=== PATIENT | female | born 1985 | race American Indian/Alaskan Native ===

== ENCOUNTER 2018-08-22 16:22 | Emergency (ER) | payer MEDICAID ==
[2018-08-22 16:24] VITALS: BMI 32.8
[2018-08-22 16:34] VITALS: RESP 18; O2SAT 98
--- NOTE | 2018-08-22 17:55 | C.PDOC ---
History Of Present Illness 33 year old female presents to the emergency department with complaints of rectal pain on and off for the past three months. Patient denies bleeding, trauma, abdominal pain, diarrhea, and vomiting. Time Seen by Provider: 08/22/18 16:38 Chief Complaint (Nursing): GI Problem History Per: Patient History/Exam Limitations: no limitations Onset/Duration Of Symptoms: Intermittent Episodes, Other (three months) Current Symptoms Are (Timing): Still Present Past Medical History Reviewed: Historical Data, Nursing Documentation, Vital Signs Vital Signs: Last Vital Signs Temp 98.9 F 08/22/18 16:33 Pulse 74 08/22/18 16:33 Resp 18 08/22/18 16:33 BP 122/80 08/22/18 16:33 Pulse Ox 98 08/22/18 16:33 - Medical History PMH: Asthma Surgical History: No Surg Hx Family History: States: No Known Family Hx - Social History Hx Tobacco Use: No Hx Alcohol Use: Yes Hx Substance Use: No - Immunization History Hx Tetanus Toxoid Vaccination: No Hx Influenza Vaccination: No Hx Pneumococcal Vaccination: No Review Of Systems Except As Marked, All Systems Reviewed And Found Negative. Gastrointestinal: Positive for: Rectal Pain. Negative for: Vomiting, Abdominal Pain, Diarrhea, Hematochezia Physical Exam - Physical Exam Appears: Well, Non-toxic, No Acute Distress Skin: Normal Color, Warm Head: Atraumatic, Normacephalic Eye(s): bilateral: Normal Inspection, PERRL, EOMI Oral Mucosa: Moist Neck: Normal ROM, Supple Chest: Symmetrical, No Tenderness Cardiovascular: Rhythm Regular, No Friction Rub, No Murmur Respiratory: Normal Breath Sounds, No Rales, No Rhonchi, No Wheezing Gastrointestinal/Abdominal: Soft, No Tenderness, No Guarding, No Rebound, No Hernia Rectal: Heme Negative, Hemorrhoids (positive external hemorrhoid present at 6 o'clock bleeding), No Mass, Other (Health Director Naheed Russell RN) Extremity: Normal ROM, No Swelling Neurological/Psych: Oriented x3, Normal Speech, Normal Cognition Gait: Steady ED Course And Treatment O2 Sat by Pulse Oximetry: 98 (RA) Pulse Ox Interpretation: Normal Progress Note: Plan: Colace 100mg PO. Motrin 400mg PO Disposition - Disposition Referrals: [facility] at [facility] [Outside] Tito Cooper MD [Staff Provider] - Disposition: HOME/ ROUTINE Disposition Time: 17:52 Condition: GOOD Additional Instructions: Follow up with the medical doctor within 1-2 days. Return if worsened. Prescriptions: Docusate [Colace] 100 mg PO DAILY #30 cap Hydrocortisone 2.5% (Rectal) [Anusol-Hc] 1 appl RC BID #1 tube Ibuprofen [Motrin] 600 mg PO TID #21 tab Instructions: Hemorrhoids (DC) Forms: [employer] (Hebrew) - Clinical Impression Clinical Impression: Hemorrhoids, Rectal pain - PA / NEW PATIENT ESCORT / Resident Statement MD/DO has reviewed & agrees with the documentation as recorded. - Scribe Statement The provider has reviewed the documentation as recorded by the Scribe (Tru Roa) All medical record entries made by the Scribe were at my direction and personally dictated by me. I have reviewed the chart and agree that the record accurately reflects my personal performance of the history, physical exam, medical decision making, and the department course for this patient. I have also personally directed, reviewed, and agree with the discharge instructions and disposition.
[2018-08-22 18:11] VITALS: BP 113/62; PULSE 64; TEMP 98.2
== END 2018-08-22 18:11 | disposition home or self-care (01) ==
LOC: C.ER 16:22
DX: K64.4 Residual hemorrhoidal skin tags (principal); K62.89 Other specified diseases of anus and rectum

== ENCOUNTER 2019-01-29 14:52 | Observation (INO) | payer MEDICAID ==
[2019-01-29 14:53] VITALS: BMI 32.8
[2019-01-29] MEDS ORDERED: Sodium Chloride 0.9% 1,000 ML IV ONE ×2 (15:32→20:07)
[2019-01-29] MEDS ORDERED: Sodium Chloride 0.9% 1,000 ML ONE ×2 (15:50→20:24)
--- NOTE | 2019-01-29 16:06 | C.PDOC ---
History Of Present Illness 33 year old female who is currently 18 weeks presents to the ED complaining of suprapubic pain for the last 3 days. Patient was seen by Grey Percher 2 days ago for same presentation and was referred to the ED for tests. Patient was also told by Grey Percher that she has lost weight (16lbs) since November 2018. Patient complains of vomiting, frontal headache, dysuria, and vaginal spotting. Denies any fever, chills, diarrhea, shortness of breath, chest pain, back pain, or any other symptoms. Time Seen by Provider: 01/29/19 15:17 Chief Complaint (Nursing): Abdominal Pain History Per: Patient History/Exam Limitations: no limitations Onset/Duration Of Symptoms: Days Current Symptoms Are (Timing): Still Present Location Of Pain/Discomfort: Suprapubic Quality Of Discomfort: "Pain" Associated Symptoms: Vomiting, Urinary Symptoms. denies: Fever, Chills, Diarrhea, Back Pain, Chest Pain Past Medical History Reviewed: Historical Data, Nursing Documentation, Vital Signs Vital Signs: Last Vital Signs Temp 98.7 F 01/29/19 15:01 Pulse 78 01/29/19 15:01 Resp 18 01/29/19 15:01 BP 128/87 01/29/19 15:01 Pulse Ox 100 01/29/19 15:01 - Medical History PMH: Asthma Surgical History: No Surg Hx Family History: States: No Known Family Hx - Social History Hx Tobacco Use: No Hx Alcohol Use: Yes Hx Substance Use: No - Immunization History Hx Tetanus Toxoid Vaccination: No Hx Influenza Vaccination: No Hx Pneumococcal Vaccination: No Review Of Systems Except As Marked, All Systems Reviewed And Found Negative. Constitutional: Negative for: Fever, Chills Gastrointestinal: Positive for: Vomiting, Abdominal Pain. Negative for: Diarrhea Genitourinary: Positive for: Dysuria, Other (vaginal spotting ) Neurological: Positive for: Headache Physical Exam - Physical Exam Appears: Non-toxic, No Acute Distress Skin: Warm, Dry, No Rash Head: Normacephalic Eye(s): bilateral: Normal Inspection, PERRL, EOMI Nose: Normal Oral Mucosa: Moist Neck: Supple Chest: Symmetrical Cardiovascular: Rhythm Regular, No Murmur Respiratory: No Rales, No Rhonchi, No Wheezing, Other (good air movement, CTA B/L ) Gastrointestinal/Abdominal: Soft, No Tenderness Extremity: Bilateral: Atraumatic, Normal Color And Temperature, Normal ROM Neurological/Psych: Oriented x3, Normal Speech Gait: Steady ED Course And Treatment - Laboratory Results Result Diagrams: 01/29/19 16:03 O2 Sat by Pulse Oximetry: 100 (RA) Pulse Ox Interpretation: Normal Medical Decision Making Medical Decision Making: Plan - Bloodwork - Zofran 4mg IVP - IV fluids - UA - US Abd Disposition - Disposition Forms: [facility] (Peruvian) - Scribe Statement The provider has reviewed the documentation as recorded by the Scriblorena Block All medical record entries made by the Scribe were at my direction and personally dictated by me. I have reviewed the chart and agree that the record accurately reflects my personal performance of the history, physical exam, medical decision making, and the department course for this patient. I have also personally directed, reviewed, and agree with the discharge instructions and disposition.
[2019-01-29 16:07] LABS: BASO % 0.4 % (0.0-2.0); EOS % 0.4 % (0.0-4.0); HEMOGLOBIN 13.3 g/dL (11.0-16.0); LYMPH % 13.3 % (20.0-40.0); MEAN CELL VOLUME 90.9 fL (81.0-99.0); MEAN CORPUSCULAR HEMOGLOBIN 30.6 pg (27.0-31.0); MEAN CORPUSCULAR HGB CONC 33.7 g/dL (33.0-37.0); MEAN PLATELET VOLUME 8.2 fL (7.2-11.7); MONO # 0.3 K/uL (0.0-0.8); MONO % 3.9 % (0.0-10.0); NEUT # 6.1 K/uL (1.8-7.0); RBC 4.33 Mil/uL (3.80-5.20); WHITE BLOOD COUNT 7.5 K/uL (4.8-10.8)
[2019-01-29] MEDS ORDERED: Morphine 4 MG/ML VIAL IV ONE (16:17)
[2019-01-29 16:25] LABS: ALB/GLOB RATIO 1.3 (1.0-2.1); ALBUMIN 4.3 g/dL (3.5-5.0); BLOOD UREA NITROGEN 13 mg/dL (7-17); GFR NON-AFRICAN AMERICAN > 60; LIPASE 78 U/L (23-300)
[2019-01-29 16:32] LABS: ALT/SGPT 17 U/L (9-52); AST/SGOT 27 U/L (14-36)
--- NOTE | 2019-01-29 16:38 | US ---
Date of service: 2019-01-29 16:07:30 HISTORY: abd pain COMPARISON: None. TECHNIQUE: Sonographic evaluation of the abdomen. FINDINGS: LIVER: Measures 15.9 cm. Diffusely increased echogenicity of the liver parenchyma. Consistent with fatty infiltration. Smooth contour. No mass. No biliary ductal dilatation. Patient unable to tolerate evaluation of the gallbladder, kidneys and spleen. Normal pancreas. AORTA: No aneurysmal dilatation. IVC: Unremarkable. OTHER FINDINGS: None. IMPRESSION: Grossly limited examination. Fatty infiltration of the liver. See above.
--- NOTE | 2019-01-29 16:44 | C.PDOC ---
History Of Present Illness 33 year old female with PMHx of fibroids presents to the ED with epigastric abdominal pain associated with vomiting which started this morning. Also complains of subjective fever and chills. Denies any diarrhea, constipation, chest pain, shortness of breath, back pain, or urinary symptoms. Notes she was feeling fine yesterday, LMP 2 days ago. <Marcella Guallpa - Last Filed: 01/29/19 19:48> <Marcella Guallpa - Last Filed: 01/29/19 19:48> <Mary Orta - Last Filed: 01/29/19 22:13> Time Seen by Provider: 01/29/19 15:17 Chief Complaint (Nursing): Abdominal Pain Past Medical History Vital Signs: Last Vital Signs Temp 98.4 F 01/29/19 16:30 Pulse 57 L 01/29/19 16:30 Resp 20 01/29/19 16:30 BP 100/62 01/29/19 16:30 Pulse Ox 100 01/29/19 16:30 - Medical History PMH: Asthma Family History: States: Unknown Family Hx - Social History Hx Tobacco Use: No Hx Alcohol Use: Yes Hx Substance Use: No - Immunization History Hx Tetanus Toxoid Vaccination: No Hx Influenza Vaccination: No Hx Pneumococcal Vaccination: No <Marcella Guallpa - Last Filed: 01/29/19 19:48> Vital Signs: Last Vital Signs Temp 98.4 F 01/29/19 16:30 Pulse 57 L 01/29/19 16:30 Resp 20 01/29/19 16:30 BP 100/62 01/29/19 16:30 Pulse Ox 100 01/29/19 19:48 <Mary Orta - Last Filed: 01/29/19 22:13> Review Of Systems Constitutional: Positive for: Fever, Chills Cardiovascular: Negative for: Chest Pain Respiratory: Negative for: Shortness of Breath Gastrointestinal: Positive for: Nausea, Vomiting, Abdominal Pain. Negative for: Diarrhea, Constipation, Melena, Hematochezia, Hematemesis Genitourinary: Negative for: Dysuria, Frequency <Marcella Guallpa - Last Filed: 01/29/19 19:48> Physical Exam - Physical Exam Appears: Non-toxic, Other (uncomfortable, in mild distress ) Skin: Warm, Dry, No Rash Head: Normacephalic Eye(s): bilateral: Normal Inspection, Other (No scleral icterus) Oral Mucosa: Moist Neck: Supple Chest: Symmetrical Cardiovascular: Rhythm Regular, No Friction Rub, No Murmur Respiratory: Normal Breath Sounds, No Rales, No Rhonchi, No Wheezing Gastrointestinal/Abdominal: Bowel Sounds (normoactive), Soft, Tenderness (significant RUQ tenderness. No tenderness in other quadrants), No Distention, No Guarding, No Rebound Back: No CVA Tenderness Neurological/Psych: Oriented x3, Normal Speech Gait: Steady <Marcella Guallpa - Last Filed: 01/29/19 19:48> ED Course And Treatment - Laboratory Results Result Diagrams: 01/29/19 16:03 01/29/19 16:03 Lab Results: Total Bilirubin 0.6 mg/dL (0.2-1.3) 01/29/19 16:03 AST 27 U/L (14-36) 01/29/19 16:03 ALT 17 U/L (9-52) 01/29/19 16:03 Alkaline Phosphatase 65 U/L (38-126) 01/29/19 16:03 Total Protein 7.7 g/dL (6.3-8.3) 01/29/19 16:03 Albumin 4.3 g/dL (3.5-5.0) 01/29/19 16:03 Globulin 3.4 gm/dL (2.2-3.9) 01/29/19 16:03 Albumin/Globulin Ratio 1.3 (1.0-2.1) 01/29/19 16:03 Lipase 78 U/L (23-300) 01/29/19 16:03 O2 Sat by Pulse Oximetry: 100 (RA) Pulse Ox Interpretation: Normal - CT Scan/US US abdomen Other Rad Studies (CT/US): Read By Radiologist, Radiology Report Reviewed CT/US Interpretation: Accession No. : [id number]. Patient Name / ID : TAMRA LIMA / [id number]. Exam Date : 01/29/2019 16:07:30 ( Approved ). Study Comment : Sex / Age : F / 33Y. Creator : Carlos Jacobson MD. Dictator : Carlos Jacobson MD. Hone Operator : Shoemaking Finisher : Carlos Jacobson MD. Approver2 : Report Date : 01/29/2019 16:34:35. My Comment : . Date of service: 2019-01-29 16:07:30. HISTORY: abd pain. COMPARISON: None. TECHNIQUE: Sonographic evaluation of the abdomen. FINDINGS: LIVER: Measures 15.9 cm. Diffusely increased echogenicity of the liver parenchyma. Consistent with fatty infiltration. Smooth contour. No mass. No biliary ductal dilatation. Patient unable to tolerate evaluation of the gallbladder, kidneys and spleen. Normal pancreas. AORTA: No aneurysmal dilatation. IVC: Unremarkable. OTHER FINDINGS: None. IMPRESSION: Grossly limited examination. Fatty infiltration of the liver. See above. <Marcella Guallpa - Last Filed: 01/29/19 19:48> - Laboratory Results Result Diagrams: 01/29/19 16:03 01/29/19 16:03 Lab Results: Total Bilirubin 0.6 mg/dL (0.2-1.3) 01/29/19 16:03 AST 27 U/L (14-36) 01/29/19 16:03 ALT 17 U/L (9-52) 01/29/19 16:03 Alkaline Phosphatase 65 U/L (38-126) 01/29/19 16:03 Total Protein 7.7 g/dL (6.3-8.3) 01/29/19 16:03 Albumin 4.3 g/dL (3.5-5.0) 01/29/19 16:03 Globulin 3.4 gm/dL (2.2-3.9) 01/29/19 16:03 Albumin/Globulin Ratio 1.3 (1.0-2.1) 01/29/19 16:03 Lipase 78 U/L (23-300) 01/29/19 16:03 Urine Color Yellow (YELLOW) 01/29/19 18:34 Urine Clarity Clear (Clear) 01/29/19 18:34 Urine pH 8.0 (5.0-8.0) 01/29/19 18:34 Ur Specific [place] 1.021 (1.003-1.030) 01/29/19 18:34 Urine Protein Negative mg/dL (NEGATIVE) 01/29/19 18:34 Urine Glucose (UA) Normal mg/dL (Normal) 01/29/19 18:34 Urine Ketones 1+ mg/dL (NEGATIVE) H 01/29/19 18:34 Urine Blood 1+ (NEGATIVE) H 01/29/19 18:34 Urine Nitrate Negative (NEGATIVE) 01/29/19 18:34 Urine Bilirubin Negative (NEGATIVE) 01/29/19 18:34 Urine Urobilinogen 4.0 mg/dL (0.2-1.0) H 01/29/19 18:34 Ur Leukocyte Esterase Neg [place]/uL (Negative) 01/29/19 18:34 Urine WBC (Auto) 1 /hpf (0-5) 01/29/19 18:34 Urine RBC (Auto) 1 /hpf (0-3) 01/29/19 18:34 <Mary Orta - Last Filed: 01/29/19 22:13> Medical Decision Making Medical Decision Making: Plan - Morphine 2mg IV - Zofran 4mg IVP - IV fluids - UA - US abd - Bloodwork Patient unable to tolerate US due to pain. Given morphine for pain control, CT abdomen ordered. On re-evaluation, patient asleep, continues to complain of significant RUQ pain to palpation when woken. Nausea improved. Patient turned over to Dr. Otra, pending CT <Marcella Guallpa - Last Filed: 01/29/19 19:48> Medical Decision Makin:09: CT results were negative. Patient still complaining of vomiting, will given liter of fluids and more antiemetics. 22:11: On reassessment, patient is still vomiting and complaining of abdominal pain, discussed with Dr. Laughlin who accepts patient to his service for observation. Patient agrees with plan to stay. <Mary Orta - Last Filed: 01/29/19 22:13> Disposition - Disposition Disposition Time: 19:45 <Marcella Guallpa - Last Filed: 01/29/19 19:48> <Mary Orta - Last Filed: 01/29/19 22:13> - Disposition Condition: GOOD Forms: [facility] (Finnish) - Clinical Impression Clinical Impression: Abdominal pain, right upper quadrant - PA / COLLECTION CORRESPONDENT / Resident Statement MD/DO has reviewed & agrees with the documentation as recorded. - Scribe Statement The provider has reviewed the documentation as recorded by the Scribe Maria Eugenia Block All medical record entries made by the Scribe were at my direction and personally dictated by me. I have reviewed the chart and agree that the record a ccurately reflects my personal performance of the history, physical exam, medical decision making, and the department course for this patient. I have also personally directed, reviewed, and agree with the discharge instructions and disposition. <Marcella Guallpa - Last Filed: 01/29/19 19:48> Physician Patient Turnover Patient Signed Over To: Mary Orta Handoff Comments: Pending CT abdomen <Marcella Guallpa - Last Filed: 01/29/19 19:48>
[2019-01-29] MEDS ORDERED: Iodixanol 320 MG/ML 100 ML BOTTLE IV ONE (18:43)
[2019-01-29 18:49] LABS: URINE BILIRUBIN NEGATIVE (NEGATIVE); URINE BLOOD 1+ (NEGATIVE); URINE CLARITY Clear (Clear); URINE COLOR Yellow (YELLOW); URINE GLUCOSE (UA) NORMAL (Normal); URINE LEUKOCYTE ESTERASE NEG Leu/uL (Negative); URINE PROTEIN NEGATIVE (NEGATIVE)
--- NOTE | 2019-01-29 22:18 | CP.PCM.HP ---
History of Present Illness - History of Present Illness History of Present Illness: PGY-1 H&P for Dr. Laughlin CC: Abdominal pain, nausea, and vomiting HPI: Patient is a 33 year old female with a past medical history of fibroids presenting with epigastric abdominal pain associated with vomiting which started this morning. She describes the pain to be achy, located diffusely in epigastric area, and 8/10 in severity. She also admits to about 15 episodes of non-bilous, non-bloody vomiting today. Patient states that she is having her menstrual period now. She denies fevers, chills, cough, headache, shortness of breath, chest pain, palpitations, diarrhea, constipation, or urinary symptoms. 12-point ROS reviewed and negative except mentioned in HPI. 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 Never been . Social Hx: 5 pack years history. Occasionally drinks wine. Denies drug use. 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 Family Hx: denies. Medications: none Present on Admission - Present on Admission Any Indicators Present on Admission: No History of DVT/PE: No History of Uncontrolled Diabetes: No Urinary Catheter: No Decubitus Ulcer Present: No Past Patient History - Infectious Disease Hx of Infectious Diseases: None - Past Social History Smoking Status: Light Smoker < 10 Cigarettes Daily - CARDIAC Hx Cardiac Disorders: Yes Other/Comment: "slow heart rate" - PULMONARY Hx Asthma: Yes - PSYCHIATRIC Hx Substance Use: No - SURGICAL HISTORY Hx Surgeries: No - ANESTHESIA Hx Anesthesia: No Meds Allergies/Adverse Reactions: Allergies Allergy/AdvReac Type Severity Reaction Status Date / Time No Known Allergies Allergy Verified 11/20/16 20:14 Physical Exam - Constitutional Appears: Well, Non-toxic, No Acute Distress - Head Exam Head Exam: ATRAUMATIC, NORMAL INSPECTION - Eye Exam Eye Exam: EOMI, Normal appearance, PERRL Pupil Exam: NORMAL ACCOMODATION - ENT Exam ENT Exam: Mucous Membranes Dry - Respiratory Exam Respiratory Exam: Clear to Auscultation Bilateral, NORMAL BREATHING PATTERN. absent: Rales, Rhonchi, Wheezes, Respiratory Distress - Cardiovascular Exam Cardiovascular Exam: REGULAR RHYTHM, +S1, +S2. absent: Gallop, Rubs, Systolic Murmur - GI/Abdominal Exam GI & Abdominal Exam: Normal Bowel Sounds, Soft, Tenderness. absent: Distended, Firm, Guarding Additional comments: Diffuse tenderness to palpation in epigastric region - Back Exam Back exam: NORMAL INSPECTION. absent: CVA tenderness (L), CVA tenderness (R) - Neurological Exam Neurological exam: Alert, CN II-XII Intact, Oriented x3 - Psychiatric Exam Psychiatric exam: Normal Affect, Normal Mood - Skin Skin Exam: Dry, Intact, Normal Color, Warm Results - Vital Signs Recent Vital Signs: Last Vital Signs Temp 98 F 01/29/19 22:09 Pulse 55 L 01/29/19 22:09 Resp 18 01/29/19 20:32 BP 117/64 01/29/19 22:09 Pulse Ox 100 01/29/19 22:09 - Labs Result Diagrams: 01/29/19 16:03 01/29/19 16:03 Labs: Laboratory Results - last 24 hr 01/29/19 01/29/19 01/29/19 16:03 16:03 18:34 WBC 7.5 RBC 4.33 Hgb 13.3 Hct 39.4 MCV 90.9 MCH 30.6 MCHC 33.7 RDW 13.0 Plt Count 297 MPV 8.2 Neut % (Auto) 82.0 H Lymph % (Auto) 13.3 L [place] % (Auto) 3.9 Eos % (Auto) 0.4 Baso % (Auto) 0.4 Neut # (Auto) 6.1 Lymph # (Auto) 1.0 [place] # (Auto) 0.3 Eos # (Auto) 0.0 Baso # (Auto) 0.0 Sodium 139 Potassium 4.1 Chloride 104 Carbon Dioxide 25 Anion Gap 14 BUN 13 Creatinine 0.5 L Est GFR ( Amer) > 60 Est GFR (Non-Af Amer) > 60 Random Glucose 135 H D Calcium 9.0 Total Bilirubin 0.6 AST 27 ALT 17 Alkaline Phosphatase 65 Total Protein 7.7 Albumin 4.3 Globulin 3.4 Albumin/Globulin Ratio 1.3 Lipase 78 Urine Color Yellow Urine Clarity Clear Urine pH 8.0 Ur Specific [place] 1.021 Urine Protein Negative Urine Glucose (UA) Normal Urine Ketones 1+ H Urine Blood 1+ H Urine Nitrate Negative Urine Bilirubin Negative Urine Urobilinogen 4.0 H Ur Leukocyte Esterase Neg Urine WBC (Auto) 1 Urine RBC (Auto) 1 Assessment & Plan - Assessment and Plan (Free Text) Assessment: Patient is a 33 year old female with a past medical history of fibroids presenting with epigastric abdominal pain. Plan: Abdominal pain with nausea and vomiting, acute - CT Abd/pelvis: No acute findings (prelim read) - Abdominal US: Grossly limited examination. Fatty infiltration of the liver. Patient unable to tolerate evaluation of the gallbladder, kidneys and spleen. - Lipase WNL - Urine POC: negative - Zofran 4mg IV Q4 PRN - Tylenol, Toradol, Morphine PRN - Protonix 40mg IVP QD - NS @ 100 mL/hr Prophylaxis: - DVT: SCD's - GI: Protonix 40mg IVP QD Case discussed with attending, Dr. Laughlin. Jatin Saldivar, PGY-1
[2019-01-29 23:38] VITALS: RESP 20
[2019-01-29] MEDS: Sodium Chloride 0.9% 1,000 ML IV SCH (23:57)
--- NOTE | 2019-01-30 08:18 | CP.PCM.PN ---
Subjective - Date & Time of Evaluation Date of Evaluation: 01/30/19 Time of Evaluation: 08:18 - Subjective Subjective: Progress Note for Dr. Laughlin's service Patient seen and examined at bedside. She states she feels much better than before. She states she has had these symptoms of abdominal pain and vomiting associated with her period before, last episode was about 2 years ago. She states she has been told she has fibroids. She is currently on Day 4 of her period. She has been drinking clear fluids withouut any vomiting since 4am this morning. She states she would like to try to have some yogurt today. She denies fevers, chills, headache, lightheadedhess, dizziness, chest pain, abdominal pain, nausea, vomiting, diarrhea, constipation, leg pain, leg swelling. She states she does not use protection, however she was told that her boyfriend could not have children for an unspecified reason. Objective - Vital Signs/Intake and Output Vital Signs (last 24 hours): Temp Pulse Resp BP Pulse Ox 98.1 F 42 L 20 121/58 L 95 01/30/19 08:00 01/30/19 08:00 01/30/19 08:00 01/30/19 08:00 01/30/19 08:00 Intake and Output: 01/30/19 01/30/19 06:59 18:59 Intake Total 1520 Balance 1520 - Medications Medications: Current Medications Acetaminophen (Tylenol 325mg Tab) 650 mg PO Q6H PRN PRN Reason: Pain, Mild (1-3) Sodium Chloride (Sodium Chloride 0.9%) 1,000 mls @ 100 mls/hr IV .Q10H JOSÉ MIGUEL Last Admin: 01/29/19 23:57 Dose: 100 mls/hr Ketorolac Tromethamine (Toradol) 15 mg IVP Q6H PRN PRN Reason: Pain, moderate (4-7) Morphine Sulfate (Morphine) 1 mg IVP Q6H PRN PRN Reason: Pain, severe (8-10) Last Admin: 01/29/19 23:56 Dose: 1 mg Ondansetron HCl (Zofran Inj) 4 mg IVP Q4H PRN PRN Reason: Nausea/Vomiting Last Admin: 01/29/19 23:57 Dose: 4 mg Pantoprazole Sodium (Protonix Inj) 40 mg IVP DAILY JOSÉ MIGUEL - Labs Labs: 01/29/19 16:03 01/29/19 16:03 - Constitutional Appears: Well, Non-toxic, No Acute Distress - Head Exam Head Exam: ATRAUMATIC, NORMOCEPHALIC - Eye Exam Eye Exam: EOMI, PERRL - ENT Exam ENT Exam: Mucous Membranes Moist - Neck Exam Neck Exam: Full ROM. absent: Tenderness - Respiratory Exam Respiratory Exam: Clear to Ausculation Bilateral, NORMAL BREATHING PATTERN. absent: Rales, Rhonchi, Wheezes, Respiratory Distress, Stridor - Cardiovascular Exam Cardiovascular Exam: REGULAR RHYTHM, +S1, +S2. absent: Gallop, Rubs, Murmur - GI/Abdominal Exam GI & Abdominal Exam: Soft, Normal Bowel Sounds. absent: Distended, Firm, Guarding, Rigid, Tenderness - Extremities Exam Extremities Exam: absent: Calf Tenderness, Pedal Edema - Back Exam Back Exam: absent: CVA tenderness (L), CVA tenderness (R) - Neurological Exam Neurological Exam: Alert, Awake, Oriented x3 - Psychiatric Exam Psychiatric exam: Normal Affect, Normal Mood - Skin Skin Exam: Dry, Intact, Warm Assessment and Plan - Assessment and Plan (Free Text) Assessment: Patient is a 33 year old female with a past medical history of fibroids presenting with epigastric abdominal pain. Plan: Abdominal pain with nausea and vomiting, improving - CT Abd/pelvis: No acute findings (prelim read) - Abdominal US: Grossly limited examination. Fatty infiltration of the liver. Patient unable to tolerate evaluation of the gallbladder, kidneys and spleen. - Lipase 78 - Urine POC: negative - UA 1+ ketones, 1+ blood. - Zofran 4mg IV Q4 PRN - Tylenol 650mg Q6 PRN - Toradol 15q6 PRN - Morphine 1mg Q6 PRN - Protonix 40mg IVP QD - NS @ 100 mL/hr - Advanced to soft diet Prophylaxis: - DVT: SCD's - GI: Protonix 40mg IVP QD
[2019-01-30 08:19] LABS: BASO % 0.2 % (0.0-2.0); LYMPH # 0.9 K/uL (1.0-4.3); LYMPH % 11.2 % (20.0-40.0); MEAN CELL VOLUME 91.3 fL (81.0-99.0); MEAN CORPUSCULAR HEMOGLOBIN 32.1 pg (27.0-31.0); MEAN CORPUSCULAR HGB CONC 35.2 g/dL (33.0-37.0); MEAN PLATELET VOLUME 8.9 fL (7.2-11.7); MONO # 0.6 K/uL (0.0-0.8); MONO % 7.2 % (0.0-10.0); NEUT # 6.7 K/uL (1.8-7.0); NEUT % 81.4 % (50.0-75.0); NRBC % 0.1 % (0.0-2.0); RBC 3.75 Mil/uL (3.80-5.20); RED CELL DISTRIBUTION WIDTH 12.9 % (11.5-14.5); WHITE BLOOD COUNT 8.3 K/uL (4.8-10.8)
[2019-01-30 08:26] LABS: ALB/GLOB RATIO 1.2 (1.0-2.1); ALBUMIN 3.9 g/dL (3.5-5.0); ALT/SGPT 26 U/L (9-52); AST/SGOT 16 U/L (14-36); BLOOD UREA NITROGEN 12 mg/dL (7-17); CALCIUM 8.8 mg/dl (8.6-10.4); GFR NON-AFRICAN AMERICAN > 60
[2019-01-30] MEDS: Sodium Chloride 0.9% 1,000 ML IV SCH ×2 (11:53→18:44)
--- NOTE | 2019-01-30 14:43 | CT ---
Date of service: 01/29/2019 PROCEDURE: CT Abdomen and Pelvis with contrast HISTORY: ruq pain COMPARISON: CT of the abdomen and pelvis with contrast performed 08/26/16 TECHNIQUE: Contrast dose: 100 mL Visipaque 320 IV Radiation dose: Total exam DLP = 1164.36 mGy-cm. This CT exam was performed using one or more of the following dose reduction techniques: Automated exposure control, adjustment of the mA and/or kV according to patient size, and/or use of iterative reconstruction technique. FINDINGS: LOWER THORAX: No visible consolidation, pleural effusion, or pneumothorax. LIVER: Unremarkable. GALLBLADDER AND BILE DUCTS: Unremarkable. PANCREAS: Unremarkable. SPLEEN: 7 mm probable splenule. Splenic calcification, likely granuloma. ADRENALS: Unremarkable. KIDNEYS AND URETERS: The kidneys enhance symmetrically. No hydronephrosis or obstructing calculus identified. VASCULATURE: No aortic aneurysm. No atherosclerotic calcification or mural plaque present. BOWEL: Stomach is nondistended. Lack of oral contrast limits evaluation for bowel pathology. Bowel loops appear within normal limits of caliber without evidence of obstruction. Mucosal thickening of the colon may be exaggerated by under distension, particularly of the transverse and right colon; however correlate clinically in order to exclude possibility of colitis. APPENDIX: The appendix appears within normal limits of caliber. No secondary signs of acute appendicitis. PERITONEUM: No significant free fluid. No definite free air. LYMPH NODES: No bulky adenopathy identified. BLADDER: Urinary bladder is decompressed. REPRODUCTIVE: Uterus is present. BONES: No acute osseous abnormality is detected. OTHER FINDINGS: Small pelvic free fluid. IMPRESSION: Mucosal thickening the colon may be exaggerated by under distension, particularly of the transverse and right colon; however correlate clinically in order to exclude possibility of colitis. Small pelvic fluid. Preliminary impression was provided by [facility]. Study marked for PA review.
[2019-01-30 16:28] VITALS: BP 100/57; PULSE 56; TEMP 97.8; O2SAT 98
--- NOTE | 2019-01-30 18:52 | CP.PCM.DIS ---
Provider - Provider Date of Admission: 01/29/19 22:14 Attending physician: Hilario Laughlin Jr, MD Time Spent in preparation of Discharge (in minutes): 40 Diagnosis - Discharge Diagnosis (1) Abdominal pain with vomiting Status: Resolved (2) Colitis Status: Resolved Hospital Course - Lab Results Lab Results: Most Recent Lab Values WBC 8.3 K/uL (4.8-10.8) 01/30/19 08:05 RBC 3.75 Mil/uL (3.80-5.20) L 01/30/19 08:05 Hgb 12.0 g/dL (11.0-16.0) 01/30/19 08:05 Hct 34.2 % (34.0-47.0) 01/30/19 08:05 MCV 91.3 fL (81.0-99.0) 01/30/19 08:05 MCH 32.1 pg (27.0-31.0) H 01/30/19 08:05 MCHC 35.2 g/dL (33.0-37.0) 01/30/19 08:05 RDW 12.9 % (11.5-14.5) 01/30/19 08:05 Plt Count 255 K/uL (130-400) 01/30/19 08:05 MPV 8.9 fL (7.2-11.7) 01/30/19 08:05 Neut % (Auto) 81.4 % (50.0-75.0) H 01/30/19 08:05 Lymph % (Auto) 11.2 % (20.0-40.0) L 01/30/19 08:05 [place] % (Auto) 7.2 % (0.0-10.0) 01/30/19 08:05 Eos % (Auto) 0.0 % (0.0-4.0) 01/30/19 08:05 Baso % (Auto) 0.2 % (0.0-2.0) 01/30/19 08:05 Neut # (Auto) 6.7 K/uL (1.8-7.0) 01/30/19 08:05 Lymph # (Auto) 0.9 K/uL (1.0-4.3) L 01/30/19 08:05 [place] # (Auto) 0.6 K/uL (0.0-0.8) 01/30/19 08:05 Eos # (Auto) 0.0 K/uL (0.0-0.7) 01/30/19 08:05 Baso # (Auto) 0.0 K/uL (0.0-0.2) 01/30/19 08:05 Sodium 140 mmol/L (132-148) 01/30/19 08:05 Potassium 4.0 mmol/L (3.6-5.2) 01/30/19 08:05 Chloride 108 mmol/L (98-107) H 01/30/19 08:05 Carbon Dioxide 23 mmol/L (22-30) 01/30/19 08:05 Anion Gap 13 (10-20) 01/30/19 08:05 BUN 12 mg/dL (7-17) 01/30/19 08:05 Creatinine 0.6 mg/dL (0.7-1.2) L 01/30/19 08:05 Est GFR ( Amer) > 60 01/30/19 08:05 Est GFR (Non-Af Amer) > 60 01/30/19 08:05 Random Glucose 143 mg/dL (65-105) H 01/30/19 08:05 Calcium 8.8 mg/dl (8.6-10.4) 01/30/19 08:05 Phosphorus 2.8 mg/dL (2.5-4.5) 01/30/19 08:05 Magnesium 2.0 mg/dL (1.6-2.3) 01/30/19 08:05 Total Bilirubin 0.4 mg/dL (0.2-1.3) 01/30/19 08:05 AST 16 U/L (14-36) 01/30/19 08:05 ALT 26 U/L (9-52) 01/30/19 08:05 Alkaline Phosphatase 61 U/L (38-126) 01/30/19 08:05 Total Protein 7.3 g/dL (6.3-8.3) 01/30/19 08:05 Albumin 3.9 g/dL (3.5-5.0) 01/30/19 08:05 Globulin 3.4 gm/dL (2.2-3.9) 01/30/19 08:05 Albumin/Globulin Ratio 1.2 (1.0-2.1) 01/30/19 08:05 Lipase 78 U/L (23-300) 01/29/19 16:03 Urine Color Yellow (YELLOW) 01/29/19 18:34 Urine Clarity Clear (Clear) 01/29/19 18:34 Urine pH 8.0 (5.0-8.0) 01/29/19 18:34 Ur Specific [place] 1.021 (1.003-1.030) 01/29/19 18:34 Urine Protein Negative mg/dL (NEGATIVE) 01/29/19 18:34 Urine Glucose (UA) Normal mg/dL (Normal) 01/29/19 18:34 Urine Ketones 1+ mg/dL (NEGATIVE) H 01/29/19 18:34 Urine Blood 1+ (NEGATIVE) H 01/29/19 18:34 Urine Nitrate Negative (NEGATIVE) 01/29/19 18:34 Urine Bilirubin Negative (NEGATIVE) 01/29/19 18:34 Urine Urobilinogen 4.0 mg/dL (0.2-1.0) H 01/29/19 18:34 Ur Leukocyte Esterase Neg [place]/uL (Negative) 01/29/19 18:34 Urine WBC (Auto) 1 /hpf (0-5) 01/29/19 18:34 Urine RBC (Auto) 1 /hpf (0-3) 01/29/19 18:34 - Hospital Course Hospital Course: Upon admission: Patient is a 33 year old female with a past medical history of fibroids presenting with epigastric abdominal pain associated with vomiting which started this morning. She describes the pain to be achy, located diffusely in epigastric area, and 8/10 in severity. She also admits to about 15 episodes of non-bilous, non-bloody vomiting today. Patient states that she is having her menstrual period now. She denies fevers, chills, cough, headache, shortness of breath, chest pain, palpitations, diarrhea, constipation, or urinary symptoms. Hospital course: Patient was admitted for abdominal pain with nausea and vomiting associated with her period. She stated that she has had prior episodes . Patient was treated with NS IV fluids, Zofran, Tylenol, Toradol, Protonix with improvement of abdominal pain and vomiting. Lipase was 78. She did not have an elevated white count during her hospitalization and remained afebrile througout. She was able to tolerated liquid, and then soft diet prior to discharge. On discharge, patient was afebrile, abdomen soft, nontender, able to tolerate PO without vomiting. Imaging did not reveal any acute pathology. Patient was stable to be discharged home as per Dr. Laughlin. Imaging: Abdominal US: grossly limited exam Fatty infiltration of liver. Abdomen CT: Mucosal thickening of the colon may be exaggerated by under distention, particularly of the transverse and right colon, however correlate clinically in order to exclude possibility of colitis. Small pelvic fluid. Discharge instructions: Patient is stable to be discharged home as per Dr. Laughlin. Follow up with your primary care doctor in 1 to 2 weeks after discharge. If you do not have a primary care doctor, you may follow up with Dr. Laughlin as well. You have been provided with a script for Zofran 4mg by mouth every 6 hours as needed for nausea. Please start eating bland foods like banana, rice, applesauce, toast, before you start eating your typical diet. Stay away from spicy foods as they may make your nausea, vomiting and abdominal pain to return. If your symptoms worsen or return, you may return to the Emergency Department at any time. Discharge Exam - Head Exam Head Exam: ATRAUMATIC, NORMOCEPHALIC - Eye Exam Eye Exam: EOMI, PERRL - ENT Exam ENT Exam: Mucous Membranes Moist - Neck Exam Neck exam: Full Rom - Respiratory Exam Respiratory Exam: Clear to PA & Lateral, NORMAL BREATHING PATTERN. absent: Rales, Rhonchi, Wheezes, Respiratory Distress, Stridor - Cardiovascular Exam Cardiovascular Exam: REGULAR RHYTHM, +S1, +S2. absent: Gallop, Rubs, Systolic Murmur - GI/Abdominal Exam GI & Abdominal Exam: Normal Bowel Sounds, Soft. absent: Distended, Firm, Guarding, Tenderness - Extremities Exam Extremities exam: pedal pulses present Additional comments: no calf tenderness, no pedal edema - Back Exam Back exam: absent: CVA tenderness (L), CVA tenderness (R) - Neurological Exam Neurological exam: Alert, CN II-XII Intact, Oriented x3 - Psychiatric Exam Psychiatric exam: Normal Affect, Normal Mood - Skin Skin Exam: Dry, Intact, Warm Discharge Plan - Discharge Medications Prescriptions: Ondansetron [Zofran] 4 mg PO Q6H #10 tab - Follow Up Plan Condition: STABLE Disposition: HOME/ ROUTINE Instructions: Nausea and Vomiting, Adult (DC), Ondansetron, Acute Abdominal Pain (DC), Ulcerative Colitis (DC), Ulcerative Colitis (GEN) Additional Instructions: Patient is stable to be discharged home as per Dr. Laughlin. Follow up with your primary care doctor in 1 to 2 weeks after discharge. If you do not have a primary care doctor, you may follow up with Dr. Laughlin as well. You have been provided with a script for Zofran 4mg by mouth every 6 hours as needed for nausea. Please start eating bland foods like banana, rice, applesauce, toast, before you start eating your typical diet. Stay away from spicy foods as they may make your nausea, vomiting and abdominal pain to return. If your symptoms worsen or return, you may return to the Emergency Department at any time. Referrals: Hilario Laughlin Jr., MD [Medical Doctor] -
== END 2019-01-30 20:06 | disposition home or self-care (01) ==
LOC: C.ER 14:52 → C.3T 22:14
PROVIDERS: ADMIT Internal Medicine; ATTEND Internal Medicine
DX: K52.9 Noninfective gastroenteritis and colitis, unspecified (principal); R10.9 Unspecified abdominal pain; R11.10 Vomiting, unspecified; K76.0 Fatty (change of) liver, not elsewhere classified; J45.909 Unspecified asthma, uncomplicated; Z87.891 Personal history of nicotine dependence
CPT/HCPCS: 36415; 74177; 76700; 80053; 81001; 81025; 83690; 83735; 84100; 85025; 96360; 96374; 99285; C9113; G0378; J1644; J2270; J2405; J7030; Q9967